=== PATIENT | female | born 1980 | race Hispanic/Latino ===

== ENCOUNTER 2025-01-14 21:07 | Emergency (ER) | payer SELFPAY ==
[~2025-01-14] VITALS: Ht 162.6 cm; Wt 106.6 kg
[2025-01-14 21:10] VITALS: PULSE 81; RESP 16; TEMP 98.1
[2025-01-14 21:48] LABS: INFLUENZA A AG NEGATIVE (NEGATIVE); INFLUENZA B AG NEGATIVE (NEGATIVE)
[2025-01-14 21:49] LABS: CORONAVIRUS COVID-19 AG NEGATIVE (NEGATIVE)
[2025-01-14 21:56] LABS: STREPTOCOCCUS GRP A ANTIGEN NEGATIVE (NEGATIVE)
[2025-01-14 22:11] VITALS: BP 126/71; PULSE 76; RESP 18; TEMP 98.3; O2SAT 99
== END 2025-01-14 22:13 | disposition home or self-care (01) ==
LOC: ER 21:19
DX: R05.9 Cough, unspecified (principal); J06.9 Acute upper respiratory infection, unspecified; R09.89 Other specified symptoms and signs involving the circulatory and respiratory systems; Z11.52 Encounter for screening for COVID-19
CPT/HCPCS: 83518; 87070; 99283